=== PATIENT | female | born 1955 | race Caucasian/White ===

== ENCOUNTER 2018-12-15 05:49 | Emergency (ER) | payer MEDICARE ==
[~2018-12-15] VITALS: Ht 160 cm; Wt 95.0 kg
[~2018-12-15 05:49] MED LIST: AMOXICILLIN500 MG OR; LORTAB 5 OR; LORTAB 7.57.5 MG OR; NAPROSYN500 MG PO; ROCEPHIN 1 GM1 GM IM; VICODIN1 TAB OR; ZOFRAN ODT8 MG SL; ZOVIRAX51 EX
[2018-12-15 06:53] LABS: HEMOGLOBIN 14.2 g/dl (12.0-16.0); IMMATURE GRANULOCYTES 0.3 % (0.0-5.0); MEAN CORPUSCULAR HGB 32.1 pG CALC (26.0-32.0); MEAN CORPUSCULAR HGB CONC 33.8 g/L CALC (32.0-36.0); NEUT# 6.03 thou/uL (2.00-7.15); RED BLOOD COUNT 4.42 mill/uL (4.20-5.60); RED CELL DISTRI WIDTH 13.3 % (11.5-15.5); URINE BILIRUBIN - DIPSTICK NEGATIVE (NEGATIVE); URINE BLOOD DIPSTICK LARGE (NEGATIVE); URINE COLOR YELLOW; URINE GLUCOSE - DIPSTICK NEGATIVE (NEGATIVE); URINE KETONE 15 mg/dL (NEGATIVE); URINE LEUK ESTERASE NEGATIVE (NEGATIVE); URINE NITRITE - DIPSTICK NEGATIVE (Negative); URINE PROTEIN - DIPSTICK NEGATIVE (NEG-TRACE); URINE SPECIFIC GRAVITY >=1.030; URINE UROBILINOGEN - DIPSTICK 0.2 E.U./dL (0.2)
[2018-12-15 07:02] LABS: ALBUMIN 4.5 g/dL (3.2-5.0); ALKALINE PHOSPHATASE 79 u/l (38-126); AMYLASE 35 u/l (30-110); ANION GAP 15 (6-22 (CALC)); BILIRUBIN, TOTAL 0.6 mg/dL (0.0-1.4); BUN 23 mg/dL (8-23); BUN/CREATININE RATIO 31 (12-20 (CALC)); CARBON DIOXIDE 23 mmol/l (22-30); CHLORIDE 106 mmol/l (95-108); CREATININE 0.8 mg/dL (0.5-1.0); GFR > 60 ML/MIN (>=60 (CALC)); GFR FOR AFR.AMER. > 60 ML/MIN (>=60 (CALC)); LIPASE 36 u/l (23-300); SGOT/AST 26 u/l (9-36); SODIUM 140 mmol/l (137-146); TOTAL PROTEIN 6.9 g/dL (6.3-8.2)
[2018-12-15 07:03] LABS: URINE SQUAMOUS EPITHELIAL CELL FEW EPI/hpf (0-FEW)
[2018-12-15 07:04] LABS: URINE BACTERIA FEW hpf
[2018-12-15] MEDS ORDERED: ONDANSETRON4 MG PO (09:57)
[2018-12-15] MEDS ORDERED: MOTRIN400 MG PO (09:57)
[2018-12-15] MEDS ORDERED: HYDROCO/APAP1 TA9 PO (09:57)
[2018-12-15 10:20] VITALS: BP 129/60
== END 2018-12-15 10:31 | disposition home or self-care (01) ==
LOC: ED 05:49
PROVIDERS: Emergency Medicine
DX: N20.0 Calculus of kidney (principal); Z87.442 Personal history of urinary calculi

== ENCOUNTER 2019-02-10 07:07 | Day surgery (SDC) | payer MEDICARE ==
[~2019-02-10 07:07] MED LIST changes: +HYDROCO/APAP1 TA9 PO; +MOTRIN400 MG PO; +ONDANSETRON4 MG PO
[2019-02-10 09:15] VITALS: BP 128/64
== END 2019-02-10 09:20 | disposition home or self-care (01) ==
LOC: ENDO 07:07
PROVIDERS: ATTEND Surgery
PROC: 0DJD8ZZ Inspection of Lower Intestinal Tract, Via Natural or Artificial Opening Endoscopic (ICD-10-PCS; principal; 2019-02-10)
DX: Z12.11 Encounter for screening for malignant neoplasm of colon (principal); K57.30 Diverticulosis of large intestine without perforation or abscess without bleeding; K64.4 Residual hemorrhoidal skin tags; K64.8 Other hemorrhoids

== ENCOUNTER 2024-12-25 09:48 | Emergency (ER) | payer MEDICARE ==
[2024-12-25] VITALS (16 sets, daily range): BP systolic 82–178; BP diastolic 38–93
[~2024-12-25] VITALS: Ht 165.1 cm; Wt 65.0 kg
[2024-12-25 10:25] LABS: BASO% 0.4 % (0-3); EOS% 0.7 % (0-8); HEMATOCRIT 42.1 % (37.0-47.0); HEMOGLOBIN 14.6 g/dl (12.0-16.0); IMMATURE GRANULOCYTES 0.1 % (0.0-5.0); LYMPH% 15.4 % (15-41); MEAN CELL VOLUME 92.1 fL CALC (80.0-100.0); MEAN CORPUSCULAR HGB 31.9 pG CALC (26.0-32.0); MEAN CORPUSCULAR HGB CONC 34.7 g/dL CAL (32.0-36.0); MONO% 6.5 % (2-13); NEUT# 5.63 thou/uL (2.00-7.15); NEUT% 76.9 % (42-76); RED BLOOD COUNT 4.57 mill/uL (4.20-5.60); RED CELL DISTRI WIDTH 13.6 % (11.5-15.5)
[2024-12-25 10:45] LABS: ALBUMIN 4.6 g/dL (3.2-5.0); ALKALINE PHOSPHATASE 75 u/l (38-126); ANION GAP 11 (6-22 (CALC)); BILIRUBIN, TOTAL 0.8 mg/dL (0.02-1.3); BUN 17 mg/dL (8-23); BUN/CREATININE RATIO 26 (12-20 (CALC)); CARBON DIOXIDE 25 mmol/l (22-30); CHLORIDE 108 mmol/l (95-108); CREATININE 0.7 mg/dL (0.5-1.0); ESTIMATED GFR 92 ML/MIN (>=90 (CALC)); LIPASE 104 u/l (23-300); POTASSIUM 3.7 mmol/l (3.5-5.1); SGOT/AST 34 u/l (9-36); SODIUM 140 mmol/l (137-146); TOTAL PROTEIN 7.3 g/dL (6.3-8.2)
[2024-12-25] MEDS ORDERED: DIATRIZOATE MEGLUMINE & SODIUM 30 ML/BTL PO ONE ×2 (11:30→13:35)
[2024-12-25] MEDS ORDERED: KETOROLAC TROMETHAMINE 15 MG/ML SDV IV STA (12:33)
[2024-12-25] MEDS ORDERED: ONDANSETRON HCl 4 MG/2 ML SDV IV ONE (12:50)
[2024-12-25] MEDS ORDERED: MORPHINE SULFATE 4 MG/ML VIAL IV ONE ×2 (13:40→16:50)
== END 2024-12-25 17:53 ==
LOC: ED 09:48
PROVIDERS: Family Medicine
DX: K56.609 Unspecified intestinal obstruction, unspecified as to partial versus complete obstruction (principal)
CPT/HCPCS: J1885; J2405; Q9967